=== PATIENT | female | born 1955 | race Caucasian/White ===

== ENCOUNTER 2017-10-06 09:45 | Emergency (ER) | payer BC ==
[2017-10-06] MEDS ORDERED: Ketorolac 30 MG/ML SDV IM ONE (10:01)
--- NOTE | 2017-10-06 10:07 | EDM.PDOC ---
ED HPI GENERAL MEDICAL PROBLEM - General Chief Complaint: Upper Extremity Injury/Pain Stated Complaint: SHOULDER AND ARM PAIN Time Seen by Provider: 10/06/17 09:50 Source of Information: Reports: Patient History Limitations: Reports: No Limitations - History of Present Illness INITIAL COMMENTS - FREE TEXT/NARRATIVE: Mary reports escalating R shoulder pain over the past few days. There is no injury hx. Pain is located at the apex of the R shoulder, with some radiation into the proximal arm, aggravated with abduction, elevation, reaching and circumduction. There is no reported weakness. The R elbow, forearm, wrist and hand are asx. The L shoulder is asx. She has tried Tylenol for sx relief. Right Shoulder Pain Score (Numeric/FACES): 10 - Related Data Allergies Allergy/AdvReac Type Severity Reaction Status Date / Time No Known Allergies Allergy Verified 10/06/17 09:55 Home Meds: Home Meds Aspirin [Halfprin] 81 mg PO DAILY 10/06/17 [History] Losartan [Cozaar] 100 mg PO DAILY 10/06/17 [History] Metoprolol Succinate [Toprol XL 50mg] 50 mg PO DAILY 10/06/17 [History] atorvaSTATin [Lipitor] 10 mg PO BEDTIME 10/06/17 [History] Past Medical History Cardiovascular History: Reports: Heart Valve Replacement, High Cholesterol, Hypertension - Past Surgical History Cardiovascular Surgical History: Reports: Valve Replacement Social & Family History - Tobacco Use Smoking Status *Q: Never Smoker - Caffeine Use Caffeine Use: Reports: Coffee, Soda - Recreational Drug Use Recreational Drug Use: No Review of Systems - Review of Systems Review Of Systems: ROS reveals no pertinent complaints other than HPI. ED EXAM, GENERAL - Physical Exam Exam: See Below Exam Limited By: No Limitations General Appearance: Alert, WD/WN, Mild Distress Head: Normocephalic Neck: Normal Inspection, Supple, Non-Tender, Full Range of Motion Respiratory/Chest: Lungs Clear, Normal Breath Sounds, Chest Non-Tender Cardiovascular: Regular Rate, Rhythm Back Exam: Normal Inspection Extremities: Normal Inspection, Limited Range of Motion (R shoulder, tender at AC joint, no subacromial tenderness) Neurological: Alert, Oriented, CN II-XII Intact, No Motor/Sensory Deficits Psychiatric: Normal Affect, Normal Mood Skin Exam: Warm, Dry, Intact, Normal Color Lymphatic: No Adenopathy Course - Vital Signs Text/Narrative:: I assessed Mary at the [facility] ED, administered Toradol 30 mg IM, and proceeded with x rays of R shoulder: noting good spacing at AC joint and at glenohumeral joint, no calcium deposits in subacromial space. There was limited improvement in forward flexion following the Toradol. Last Recorded V/S: Last Vital Signs Temp 36.8 C 10/06/17 09:58 Pulse 76 10/06/17 09:58 Resp 20 10/06/17 09:58 BP 174/65 H 10/06/17 09:58 Pulse Ox 96 10/06/17 09:58 - Orders/Labs/Meds Orders: Active Orders 24 hr Category Date Time Status Shoulder Comp Rt [CR] Stat Exams 10/06/17 10:02 Taken Meds: Medications Discontinued Medications Generic Name Dose Route Start Last Admin Trade Name Freq PRN Reason Stop Dose Admin Ketorolac Tromethamine 30 mg 10/06/17 10:01 10/06/17 10:06 Toradol IM 10/06/17 10:02 30 mg ONETIME ONE Administration Departure - Departure Time of Disposition: 10:52 Disposition: Home, Self-Care 01 Condition: Fair Clinical Impression: Painful arc syndrome of right shoulder - Discharge Information Referrals: Owen Cortes MD [Primary Care Provider] - Forms: ED Department Discharge - Problem List & Annotations (1) Painful arc syndrome of right shoulder SNOMED Code(s): 293386833 Code(s): M75.101 - UNSP ROTATR-CUFF TEAR/RUPTR OF RIGHT SHOULDER, NOT TRAUMA Status: Acute Current Visit: Yes Annotation/Comment:: I dispensed Toradol 10mg qid prn for pain. She will contact PCP regarding PT next week. - Problem List Review Problem List Initiated/Reviewed/Updated: Yes - My Orders Last 24 Hours: My Active Orders 10/06/17 10:02 Shoulder Comp Rt [CR] Stat - Assessment/Plan Last 24 Hours: My Active Orders 10/06/17 10:02 Shoulder Comp Rt [CR] Stat Plan: Follow up with PCP.
--- NOTE | 2017-10-08 11:14 | CR ---
INDICATION: Right shoulder pain, question AC joint arthrosis - lifting injury. RIGHT SHOULDER: Four views of the right shoulder were obtained 10/06/2017 and revealed minimal degenerative changes at the AC joint. The glenohumeral joint appears to be fairly normal, although there may be a slight loss of joint space. There is suggestion of some very minimal calcification at the attachments at the greater tuberosity, suggesting calcific tendinitis in that area. This should be correlated clinically. Adjacent ribs appear to be intact. IMPRESSION: 1. No acute fracture or dislocation. 2. Minimal osteoarthritis AC joint. 3. Possible calcific tendinitis. 4. Suggestion of minimal degenerative changes at the glenohumeral joint with slight narrowing of the joint space suggested and very minimal irregularity of the joint surfaces suggested. MTDD
== END 2017-10-06 11:05 | disposition home or self-care (01) ==
LOC: FB.ED 09:45
DX: M75.41 Impingement syndrome of right shoulder (principal); E78.00 Pure hypercholesterolemia, unspecified; I10 Essential (primary) hypertension; Z79.82 Long term (current) use of aspirin; Z79.899 Other long term (current) drug therapy
CPT/HCPCS: 73030; 96372; 99283; J1885

== ENCOUNTER 2025-05-20 11:49 | Emergency (ER) | payer MEDICARE, OTHER ==
[2025-05-20] MEDS ORDERED: Sodium Chloride 0.9% 10 ML Syringe FLUSH PRN (12:43)
[2025-05-20 13:52] LABS: MEAN PLATELET VOLUME 11.2 fL (7.1-12.4); PLATELET COUNT,PLT 86 x10(3)uL (151-488); RED BLOOD CELL COUNT 5.66 x10(6)uL (3.60-5.20); RED CELL DISTRIBUTION WIDTH 20.5 % (12.3-16.5); WHITE BLOOD CELL COUNT,WBC 7.5 x10-3/uL (3.0-10.3)
[2025-05-20 13:58] LABS: BLOOD UREA NITROGEN,BUN 31 mg/dL (7-18); CARBON DIOXIDE,CO2 31 mmol/L (21-32); CHLORIDE,CL 109 mmol/L (100-110); CREATININE 1.2 mg/dL (0.55-1.02); ESTIMATED GFR 49 mL/min (>60); GLUCOSE RANDOM 90 mg/dL (80-116); POTASSIUM,K 3.6 mmol/L (3.5-5.3); SODIUM,NA 151 mmol/L (135-145)
[2025-05-20 14:03] LABS: BASE EXCESS VENOUS,POC -1 mmol/L (-2 - 3+); PCO2 VENOUS,POC 58 mmHg (41-51); PH VENOUS,POC 7.29 pH Units (7.32-7.43)
[2025-05-20 14:04] LABS: A/G RATIO 0.9; ALANINE AMINOTRANSFERASE,ALT 25 U/L (12-36); ASPARTATE AMNIOTRANSFERASE,AST 30 IU/L (5-25); BILIRUBIN TOTAL 2.4 mg/dL (0.1-1.3); PROTEIN TOTAL,TP 6.8 g/dL (6.0-8.0)
[2025-05-20 14:09] LABS: BAND PERCENT MAN 2 % (0-6); EOSINOPHILS PERCENT MAN 1 % (0-5); LYMPHOCYTES PERCENT MAN 5 % (13-37); MONOCYTES PERCENT MAN 5 % (4-12); SEG NEUTROPHILS PERCENT MAN 87 % (46-82)
[2025-05-20] MEDS: Furosemide 40 MG/4 ML VIAL IVPUSH ONE (15:19)
[2025-05-20] MEDS: Magnesium Sulfate 2 GM/50 mL 2 GM in Premix Bag 1 BAG IV ONE (15:20)
[2025-05-20] MEDS: methylPREDNISolone Sodium Succinate 125 MG/2 ML SDV IVPUSH ONE (15:20)
[2025-05-20 16:14] LABS: GLUCOSE,URINE NORMAL (NORMAL); OCCULT BLOOD,URINE MODERATE (NEGATIVE)
[2025-05-20 16:15] LABS: APPEARANCE,URINE SLIGHTLY CLOUDY (CLEAR)
[2025-05-20 16:17] LABS: SQUAMOUS EPITHELIAL CELLS,UR FEW (NS,R,O)
== END 2025-05-20 19:11 ==
LOC: FB.ED 11:49
DX: J96.01 Acute respiratory failure with hypoxia (principal); I21.4 Non-ST elevation (NSTEMI) myocardial infarction; I11.0 Hypertensive heart disease with heart failure; I50.9 Heart failure, unspecified; N39.0 Urinary tract infection, site not specified; R60.1 Generalized edema; E78.00 Pure hypercholesterolemia, unspecified; E66.9 Obesity, unspecified; Z79.899 Other long term (current) drug therapy; Z79.82 Long term (current) use of aspirin
CPT/HCPCS: 36415; 51702; 71045; 71045-26; 74176; 74176-26; 80053; 81001; 83735; 83880; 84484; 85025; 86140; 87040; 87086; 87088; 87186; 87428-QW; 93005; 96365; 96366; 96375; 99285-25; A9270-GY; J0696; J1938; J2919; J3475